=== PATIENT | female | born 1945 | race Caucasian/White ===

== ENCOUNTER 2016-10-22 00:38 | Observation (INO) | payer OTHER ==
[2016-10-22] VITALS (8 sets, daily range): BP systolic 127–155; BP diastolic 64–87; PULSE 72–86; TEMP 36.4–37.3; O2SAT 96–99; Ht 165.1 cm; Wt 88.8 kg
[~2016-10-22] VITALS: Ht 165.1 cm; Wt 88.8 kg
[~2016-10-22 00:38] MED LIST: AMOX500C3 PO; ATEN-173 PO; ATOR-24 PO; EFFSR150 PO; HYD50 PO; OXYC-57 PO; VERAPAMIL ER PO
[2016-10-22] MEDS ORDERED: CEFOXITIN SOD 2 GM VIAL IV STA (01:56)
[2016-10-22] MEDS ORDERED: LACTATED RINGER'S 1000ML 1,000 ML IV SCH ×2 (02:00→05:45)
--- NOTE | 2016-10-22 02:08 | History & Physical Bridge Note ---
H&P Re-Evaluation Bridge Note: I have examined the patient, reviewed the History & Physical and in the interval since the performance of the History & Physical I have noted the following changes of clinical significance: No changes noted h and p dictated stat line 100 at 2;04, front line supervisor called at 2:02 confirmation number [id number] dx incarcertaed right lowr quadrant hernia plan open repair
[2016-10-22] MEDS ORDERED: VERA240T20 PO (02:12)
[2016-10-22] MEDS ORDERED: VENL150C56 PO (02:12)
[2016-10-22] MEDS ORDERED: HYDR50TA3 PO (02:12)
[2016-10-22] MEDS ORDERED: POTA10CA28 PO (02:13)
[2016-10-22] MEDS ORDERED: CEFOXITIN IV 2,000 MG in DEXTROSE 5% 50ML 50 ML IV STA (02:14)
[2016-10-22] MEDS ORDERED: BACITRACIN 50000 UNIT VIAL ONE (02:17)
[2016-10-22] MEDS ORDERED: BUPIVACAINE 0.5 % 5 MG/1 ML MPF 30ML VIAL ONE (02:17)
[2016-10-22] MEDS ORDERED: FENTANYL CITRATE INJ 50 MCG/1 ML 2 ML VIAL ONE (02:22)
[2016-10-22] MEDS ORDERED: MIDAZOLAM HCL 1 MG/ML 2ML VIAL ONE (02:22)
[2016-10-22] MEDS ORDERED: DEXAMETHASONE SOD INJ 4 MG/ML VIAL ONE (02:23)
[2016-10-22] MEDS ORDERED: NEOSTIGMINE METHYLSULFATE 5 MG/5 ML SYR ONE (02:23)
[2016-10-22] MEDS ORDERED: PROPOFOL IV EMULSION 10 MG/ML 20 ML VIAL IV ONE (02:23)
[2016-10-22] MEDS ORDERED: SUCCINYLCHOLINE CHLORIDE 20 MG/ML 10 ML VIAL IV ONE (02:23)
[2016-10-22] MEDS ORDERED: ROCURONIUM BROMIDE 10 MG/ML 5 ML VIAL ONE (02:23)
[2016-10-22] MEDS ORDERED: GLYCOPYRROLATE INJ 0.2 MG/ML VIAL ONE (02:23)
[2016-10-22] MEDS ORDERED: ONDANSETRON INJ 2 MG/ML 2 ML VIAL ONE (02:23)
[2016-10-22] MEDS ORDERED: ONDANSETRON INJ 2 MG/ML 2 ML VIAL IV PRN ×2 (02:45→04:45)
[2016-10-22] MEDS ORDERED: ATROPINE SULFATE 0.1 MG/ML 5ML SYR IV PRN (02:45)
[2016-10-22] MEDS ORDERED: FENTANYL CITRATE INJ 50 MCG/1 ML 2 ML VIAL IV PRN (02:45)
[2016-10-22] MEDS ORDERED: EpHEDrine SULFATE INJ 50 MG/ML AMP IV PRN (02:45)
[2016-10-22] MEDS ORDERED: HYDROmorphone INJ 1 MG/ML SYR IV PRN ×2 (02:45→04:45)
--- NOTE | 2016-10-22 04:32 | [facility] Post Operative Brief Note ---
Immediate Operative Summary Operative Date October 22, 2016. Pre-Operative Diagnosis Incarcerated right lower quadrant hernia Post-Operative Diagnosis inc indirect hernia Procedure(s) Performed Incarcerated Indirect Hernia with Direct Weakness, Repair tension free with marlex, Excision of lipoma of round ligament Surgeon Dr Reynolds Casting Director Surgeon(s) 0 Estimated Blood Loss 8.5ml Findings edema int ring area and surrounding tissue with large ind hernia and direct weakness Specimens A. Lipoma of round ligament B. Round ligament C. Hernia sac
[2016-10-22] MEDS ORDERED: OXYCODONE/ACETAMINOPHEN 5-325 TAB PO PRN (04:45)
[2016-10-22] MEDS ORDERED: LABETALOL HCL IV 5 MG/ML 20ML IV PRN (04:45)
[2016-10-22] MEDS ORDERED: IV FLUIDS COMPLETED PRN (05:00)
--- NOTE | 2016-10-22 05:04 | Anesthesiology Progress Note ---
Anesthesia Post Op Note Date & Time October 22, 2016 at 05:04 Vital Signs Pain Intensity: 4.0 Vital Signs Past 12 Hours Date Time Temp Pulse Resp B/P Pulse Ox O2 Delivery O2 Flow Rate FiO2 10/22/16 04:50 36.7 78 17 172/72 99 Nasal Cannula 4 10/22/16 04:45 36.7 82 16 171/82 100 Nasal Cannula 4 10/22/16 04:40 37.1 84 16 180/83 100 Mask 9 10/22/16 02:37 37.1 89 18 163/70 96 10/22/16 02:20 89 18 163/70 96 Room Air 10/22/16 00:38 37.1 88 18 152/100 94 Room Air Notes Mental Status: alert / awake / arousable, participated in evaluation Pt Amnestic to Procedure: Yes Nausea / Vomiting: adequately controlled Pain: adequately controlled Airway Patency, RR, SpO2: stable & adequate BP & HR: stable & adequate Hydration State: stable & adequate Anesthetic Complications: no major complications apparent
--- NOTE | 2016-10-22 05:36 | HISTORY & PHYSICAL EXAMINATION ---
DATE OF ADMISSION: 10/22/2016 TIME: 2:00 in the morning. SUMMARY: This is a 71-year-old female that I was called by the [facility] physician approximately 2-1/2 hours ago where at that time she presented to the ER with findings of incarcerated right lower quadrant hernia. They had planned a CAT scan which showed a loop of bowel incarcerated in the area. They tried calling the physician, surgeon that works there would not come in because he was on vacation. Therefore, they have asked if she could be transferred here to [facility] and be treated. As I see her now, it is 2:00 in the morning, the patient is resting comfortably in no acute distress except pain in the right lower quadrant wishing that the pain would go away. Her story is such that for a number of years she has had this intermittent pain in that area. She swims about 3 times a week and she has had apparently multiple tests, could never document any hernia, although she states that she feels a lump there at times and she massages this and it goes away. Apparently since yesterday, this has not been the case. She has been unable to get any relief from it. She tries all her maneuver to try reduce this area, but has been unsuccessful. PAST SURGICAL HISTORY: Including an appendectomy, some tubal ligation. PAST MEDICAL HISTORY: She has a history of hypertension, but denies any cardiac, pulmonary history. ALLERGIES: She has no known allergies. REVIEW OF SYSTEMS: As stated, she is quite active and denies any chest pain, any shortness of breath. PHYSICAL EXAMINATION: GENERAL: The patient is in no acute distress, except that she is massaging the right lower quadrant wishing to reduce the area. HEAD: Normocephalic. EYES: PERRLA. OROPHARYNGEAL AREA: She has a few missing teeth in her lower jaw and most frontal area. NECK: There is no cervical lymphadenopathy. Carotid without any bruits. HEART: Normal sinus no murmurs. ABDOMEN: She has slightly redundant panniculus going down to the area of the upper thigh but certainly reducible and mobile, but she does have a hard reduced mass. To me, given her size it appears to be mostly localized in the right inguinal area. 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 EXTREMITIES: Grossly normal. There is no peripheral edema. PLAN: At this point, we will proceed with open right lower quadrant hernia repair. Risks and complications were explained to the patient includes bleeding, infection, and recurrence and she would like to proceed accordingly. ADDENDUM: LABORATORY: Potassium was 3.3, her white count is 11.5, but her hemoglobin is 38 and EKG is pretty much unremarkable. MTDD
[2016-10-22] MEDS ORDERED: VENLAFAXINE HCL XR 150 MG CAPXR PO SCH (09:00)
[2016-10-22] MEDS ORDERED: HYDROCHLOROTHIAZIDE 50 MG TAB PO SCH (09:00)
[2016-10-22] MEDS ORDERED: ATORVASTATIN 20 MG TAB PO SCH (09:00)
[2016-10-22] MEDS ORDERED: VERAPAMIL HCL 240 MG TABCR PO SCH (09:00)
--- NOTE | 2016-10-22 12:14 | OPERATIVE REPORT ---
DATE OF OPERATION: 10/22/2016 SURGEON: Alvaro Reynolds MD PREOPERATIVE DIAGNOSIS: Incarcerated right lower quadrant hernia. POSTOPERATIVE DIAGNOSES: Incarcerated right indirect inguinal hernia, direct weakness and lipoma of the round ligament. PROCEDURE: Right indirect inguinal hernia repair with Marlex mesh, tension free excision lipoma of the cord. SUMMARY: The patient was brought into the operating room theater. The abdomen was prepped widely with Betadine scrubbing solution and properly draped. The patient has had a palpable mass in the right lower quadrant in a large panniculus. I thought it was an inguinal hernia, but the CAT scan they questioned whether it would be a Spigelian. After we had prepped her, I checked the area again and actually the hernia spontaneously reduced with general anesthetic and appeared to be more in the inguinal canal. Therefore, an incision was made parallel to what I thought as the inguinal ligament, deepened through subcutaneous tissue. We had about 3 inches of subcutaneous tissue until we got to the external oblique fascia, which we were exposing the shelving portion of the inguinal ligament to the external ring. At this point, I incised the fascia along the course of its fibers. The nerve identified and elevated superiorly on top of the hemostat. At this point, I elevated the area and was actually allowed with the round ligament, which I did not see any definite hernia in that area except once we elevated, I divided the round ligament, I got a better exposure and I could identify the patient had a direct weakness. I thought that this may have been the hernia, although it was not all delineated hernial sac. As we moved more laterally, I opened the external oblique more towards the anterior superior iliac crest and I found a significant amount of edema in that area, elevated and found a very long indirect sac, which we opened, placed a finger underneath into the abdomen. There were no cloudy fluid or hemorrhagic fluid. There seemed to be some clear ascitic fluid. I palpated the floor that appeared to be a strong enough except for the weakness that we felt beneath the direct area and more lateral superior, I could not feel any other defects. At this point, I closed the indirect sac with a 2-0 silk suture and resected part of the sac and we turned this in the internal ring area. I then imbricated with 3-0 interrupted silk sutures, the direct weakness approximating some transversalis fascia and similarly around the indirect area, we were able to reduce anything retroperitoneally since we had divided the round ligament. I brought up a sheet of Marlex mesh and onlayed it onto the symphysis pubis, shelving portion of the inguinal ligament above on the conjoined tendon. We cut a slit in the mesh to make sure that we did not entrap the nerves. Then, we placed the mesh completely subfascially on the external oblique. Also of note, once we were in the superior lateral aspect of the incision, in the subfascial area, there was still moderate amount of edema in the wall. I think this was probably related to a longstanding obstruction the patient had. I did not feel any other hernia. The external oblique was closed on top of the mesh with 3-0 interrupted silk suture, 3-0 Dexon and adebayo for skin edges. Dressing was applied. Local anesthetic was used in the wound. We also resected a piece of the lipoma of the round ligament as mentioned. The procedure was tolerated well by the patient. Estimated blood loss approximately 8.5 mL. The patient was taken to recovery room in good condition. I attest to the content of the Intraoperative Record and any orders documented therein. Any exceptions are noted below. ALEXD
[2016-10-22] MEDS ORDERED: OXYC-57 PO (14:21)
--- NOTE | 2016-10-22 14:21 | Discharge Instructions ---
Discharge Instructions Date of Service October 22, 2016. Admission Reason for Admission: Post-Op Pain Discharge Discharge Diagnosis / Problem: hernia repair Discharge Goals Goal(s): Decrease discomfort Activity Recommendations Activity Limitations: as noted below Lifting Limitations: no more than 10 pounds Shower/Bathe: tomorrow Driving or Machine Use: 1 week . Instructions / Follow-Up Instructions / Follow-Up Dr. Reynolds in 1 week, call [phone] to schedule, [address] Current Hospital Diet Patient's current hospital diet: Regular Diet Discharge Diet Recommended Diet: Regular Diet Procedures Procedures Performed: Incarcerated Indirect Hernia with Direct Weakness, Repair tension free with marlex, Excision of lipoma of round ligament Pending Studies Studies pending at discharge: no Medical Emergencies . Who to Call and When: Medical Emergencies: If at any time you feel your situation is an emergency, please call 911 immediately. . Non-Emergent Contact Non-Emergency issues call your: Surgeon Call Non-Emergent contact if: you have a fever, temperature is above 101.5, wound has increased redness, wound has increased pain . "Provider Documentation" section prepared by Mario Castrejon. . VTE Core Measure Inpt VTE Proph given/why not?: SCD's
--- NOTE | 2016-10-23 23:15 | DISCHARGE SUMMARY ---
DISCHARGE DIAGNOSES: 1. Incarcerated indirect right inguinal hernia 2. hypertension. PROCEDURE PERFORMED: Right indirect inguinal hernia repair with a Marlex mesh and excision of lipoma of the cord. HOSPITAL COURSE: The patient is a 71-year-old female, who was seen at another local hospital for right lower quadrant pain. A CAT scan there showed an incarcerated hernia. She was transferred to our facility, as a surgeon was not available locally and taken to the operating room overnight for repair of hernia. The procedure was well tolerated. She was transferred to the surgical floor for observation. During the day, she was able to increase diet and activity. She was tolerating oral analgesics. She was stable for discharge home later in the afternoon. DISCHARGE INSTRUCTIONS: Discharge home. Follow up with Dr. Reynolds in 1 week. DISCHARGE MEDICATIONS: Percocet 1-2 tablets every 4 hours as needed. Resume home medications, verapamil 240 mg daily, Effexor 150 mg daily, Micro-K 1 tablet daily, hydrochlorothiazide 50 mg daily, Lipitor 40 mg daily, atenolol 25 mg daily, Amoxil 500 mg p.o. b.i.d. until completed. MTDD
== END 2016-10-22 18:33 | disposition home or self-care (01) ==
LOC: ENRESERVTM → ENRESERVDT → EDBD 00:38 → C.EDA 00:40 → C.MSN 04:36
PROVIDERS: ADMIT Surgery; ATTEND Surgery
DX: K40.30 Unilateral inguinal hernia, with obstruction, without gangrene, not specified as recurrent (principal); D17.5 Benign lipomatous neoplasm of intra-abdominal organs; I10 Essential (primary) hypertension; F32.9 Major depressive disorder, single episode, unspecified; Z68.32 Body mass index [BMI] 32.0-32.9, adult; E66.9 Obesity, unspecified; Z98.51 Tubal ligation status; Z96.653 Presence of artificial knee joint, bilateral; Z90.89 Acquired absence of other organs